=== PATIENT | female | born 1950 | race Caucasian/White ===

== ENCOUNTER 2017-11-28 13:11 | Emergency (ER) | payer OTHER, BC ==
[2017-11-28] MEDS ORDERED: FAMOTIDINE IV 20 MG/12 ML VIAL IVPB ONE (13:18)
[2017-11-28] MEDS ORDERED: ONDANSETRON 4 MG/2 ML VIAL IVPUSH ONE (13:18)
[2017-11-28] MEDS ORDERED: methylPREDNISolone NA SUCC 125 MG/2 ML VIAL IVPUSH ONE (13:18)
[2017-11-28] MEDS ORDERED: SODIUM CHLORIDE 1,000 ML IV STA (13:19)
[2017-11-28 13:29] VITALS: BP 109/64; PULSE 92; TEMP 98.4; BMI 23.6
--- NOTE | 2017-11-28 13:30 | PDOC ---
Attending Attestation - Resident Resident Name: FabioShane hansen - ED Attending Attestation I have performed the following: I have examined & evaluated the patient, The case was reviewed & discussed with the resident, I agree w/resident's findings & plan, Exceptions are as noted - HPI HPI: 11/28/17 13:25 67 yo F c/ no pmh p/w allergic reaction. Pt was given prophylaxis for dental procedure for bilateral knee replacements with amoxicillin. Has taken amoxicillin before. 20 min prior to arrival, had taken 1 dose of amoxicillin. Developed diffuse redness, rash, itchiness, nausea, tingling of lips. no chest pain but she is starting to feel some shortness of breath. Came in for eval and seen immediately by us. - Physicial Exam PE: 11/28/17 13:30 GENERAL: Awake, alert, and fully oriented, in no acute distress. HEAD: No signs of trauma EYES: PERRLA, EOMI, sclera anicteric, conjunctiva clear ENT: Auricles normal inspection, hearing grossly normal, nares patent, oropharynx clear without exudates. NECK: Normal ROM, supple, LUNGS: Breath sounds equal, clear to auscultation bilaterally. No wheezes, and no crackles HEART: Regular rate and rhythm, normal S1 and S2, no murmurs, rubs or gallops ABDOMEN: Soft, nontender, normoactive bowel sounds. No guarding, no rebound. No masses EXTREMITIES: Normal range of motion, no edema. No clubbing or cyanosis. No cords, erythema, or tenderness NEUROLOGICAL: Cranial nerves II through XII grossly intact. Normal speech, normal gait SKIN: Warm, Dry, normal turgor. Mildly flushed skin diffusely. - Medical Decision Making 11/28/17 13:30 Pt likely with allergic reaction to amoxicillin. Will list amoxicillin as an allergy. Benadryl, Pepcid, Steroids, and IVF and observe. If patient is symptom free after several hours, patient can go home with prescription of steroids and benadryl.
--- NOTE | 2017-11-28 13:45 | PDOC ---
History of Present Illness - General Chief Complaint: Allergic Reaction Stated Complaint: ALLERGIC RE Time Seen by Provider: 11/28/17 13:14 - History of Present Illness Initial Comments: 11/28/17 13:37 Patient is a 67F with history of bilateral knee replacement here today complaining of allergic reaction. She states that 20 minutes prior to presentation she suddenly started feeling itchy and nauseated. Patient reports taking amoxicillin for prophylaxis prior to dental work, and has taken amoxicillin many times before. Denies any new food exposures or history of allergies. Denies chest pain, abdominal pain. Patient says her lips "feel itchy " but does not report any issues with her ability to breathe. Past History - Past Medical History Allergies/Adverse Reactions: Allergies Allergy/AdvReac Type Severity Reaction Status Date / Time amoxicillin Allergy Verified 11/28/17 13:36 Home Medications: Ambulatory Orders Prednisone [Deltasone] 40 mg PO DAILY #5 tablet 11/28/17 COPD: No - Suicide/Smoking/Psychosocial Hx Smoking History: Never smoked Hx Alcohol Use: No Drug/Substance Use Hx: No Substance Use Type: None Review of Systems - Review of Systems Comments:: 11/28/17 13:40 GENERAL/CONSTITUTIONAL: No fever or chills. No weakness. HEAD, EYES, EARS, NOSE AND THROAT: No change in vision. No sore throat. CARDIOVASCULAR: No chest pain or shortness of breath RESPIRATORY: No cough, wheezing, or hemoptysis. GASTROINTESTINAL: Positive for nausea. Negative for vomiting, diarrhea or constipation. MUSCULOSKELETAL: No joint or muscle swelling or pain. No neck or back pain. SKIN: No rash NEUROLOGIC: No headache, vertigo, loss of consciousness, or change in strength/ sensation. ENDOCRINE: No increased thirst. No abnormal weight change ALLERGIC/IMMUNOLOGIC: Positive for rash on skin. *Physical Exam - Vital Signs Last Vital Signs Temp Pulse Resp BP Pulse Ox 98.4 F 92 H 18 109/64 97 11/28/17 13:11 11/28/17 13:11 11/28/17 13:11 11/28/17 13:11 11/28/17 13:11 - Physical Exam Comments: 11/28/17 13:40 GENERAL: Awake, alert, and fully oriented, in mild distress HEAD: No signs of trauma, normocephalic, atraumatic EYES: PERRLA, EOMI, sclera anicteric, conjunctiva clear ENT: Auricles normal inspection, hearing grossly normal, nares patent, oropharynx clear without exudates. Moist mucosa. Mallampati class 4. No swelling noted in airway. No tongue swelling appreciated NECK: Normal ROM, supple, no lymphadenopathy, JVD, or masses LUNGS: No distress, speaks full sentences, clear to auscultation bilaterally HEART: Regular rate and rhythm, normal S1 and S2, no murmurs, rubs or gallops, peripheral pulses normal and equal bilaterally. EXTREMITIES: Normal inspection, Normal range of motion, no edema. No clubbing or cyanosis. NEUROLOGICAL: Cranial nerves II through XII grossly intact. Normal speech, normal gait, no focal sensorimotor deficits SKIN: Warm, Dry, normal turgor, diffuse erythematous raash. Medical Decision Making - Medical Decision Making 11/28/17 13:42 Patient is a 67F with history of knee replacement here today with allergic reaction. Vital signs stable. A: Patient is protecting airway B: Equal breath sounds bilaterally, no wheezing C: No tachycardia, BP stable, IV placed D: Moving all extremities, ambulatory E: Rash on skin, no signs of continuing exposure Will treat with IV benadryl, solumedrol, pepcid, fluids, zofran. Patient is stable, do not believe epinephrine is necessary at this point. Will continue to monitor. 11/28/17 15:31 Patient reports feeling better. Itchiness has mostly resolved. Will discharge with prednisone to take at home and PCP follow up. *DC/Admit/Observation/Transfer Diagnosis at time of Disposition: Allergic reaction - Discharge Dispostion Disposition: HOME Condition at time of disposition: Good Admit: No - Prescriptions Prescriptions: Prednisone [Deltasone] 40 mg PO DAILY #5 tablet - Referrals Referrals: Amos Swenson MD [Staff Physician] - - Patient Instructions Printed Discharge Instructions: DI for Adverse Drug Reaction -- Allergic Additional Instructions: Please avoid taking amoxicillin until further evaluated by your PCP or an financial compliance manager. A referral to an financial compliance manager has been included in your discharge paperwork. Please call to setup an appointment. Please return if you have any new, worsening or concerning symptoms. - Post Discharge Activity
== END 2017-11-28 15:42 | disposition home or self-care (01) ==
LOC: FER 13:11
PROC: 3E033GC Introduction of Other Therapeutic Substance into Peripheral Vein, Percutaneous Approach (ICD-10-PCS; principal; 2017-11-28)
PROC: 3E0337Z Introduction of Electrolytic and Water Balance Substance into Peripheral Vein, Percutaneous Approach (ICD-10-PCS; 2017-11-28)
DX: T78.40XA Allergy, unspecified, initial encounter (principal); Z96.653 Presence of artificial knee joint, bilateral
CPT/HCPCS: 96361; 96365; 96375; 99282-25